=== PATIENT | male | born 1955 | race Caucasian/White ===

== ENCOUNTER 2017-10-18 05:40 | Inpatient (IN) | payer BC, OTHER ==
[2017-10-11 12:08] LABS: HEMATOCRIT 42.4 % (37.9-51.0); HEMOGLOBIN 14.2 g/dL (13.5-17.0); MEAN CORPUSCULAR HEMOGLOBIN 29.8 pg (27.0-33.4); MEAN CORPUSCULAR HGB CONC 33.6 g/dL (32.0-36.0); MEAN CORPUSCULAR VOLUME 89 fl (80-97); PLATELET COUNT 212 10^3/uL (150-450); RED BLOOD COUNT 4.77 10^6/uL (4.35-5.55); RED CELL DISTRIBUTION WIDTH 14.9 % (11.5-14.0); WHITE BLOOD COUNT 8.3 10^3/uL (4.0-10.5)
[2017-10-11 12:22] LABS: APPEARANCE,URINE CLEAR; BILIRUBIN,URINE NEGATIVE (NEGATIVE); COLOR,URINE YELLOW; GLUCOSE, URINE NEGATIVE (NEGATIVE); KETONES,URINE NEGATIVE (NEGATIVE); LEUKOCYTE ESTERASE,URINE NEGATIVE (NEGATIVE); NITRITE,URINE NEGATIVE (NEGATIVE); PROTEIN,URINE NEGATIVE (NEGATIVE); UROBILINOGEN,URINE NEGATIVE mg/dL (<2.0)
[2017-10-11 12:33] LABS: ANION GAP 11 (5-19); BLOOD UREA NITROGEN 20 mg/dL (7-20); CARBON DIOXIDE 31 mmol/L (22-30); CHLORIDE 99 mmol/L (98-107); GLUCOSE 96 mg/dL (75-110); POTASSIUM 5.2 mmol/L (3.6-5.0)
[~2017-10-18 05:40] MED LIST: BUPIVACAINE INJ/PF LIPOSOME/PF 266 MG/20 ML SDV IJ PRN; CEFAZOLIN 2 GM/D5W RTU 2 GM/50 ML RTUPB IV PRN; IBUPROFEN 800 MG/NS 250 ML IV PRN; LACTATED RINGERS 1000 ML IV PRN; LANSOPRAZOLE 15 MG TAB.RAP.DR PO PRN; LIDOCAINE 0.5% INJ-PF (5 MG/ML) 50 ML SDV SUBCUT PRN; OXYCODONE HCL SR 10 MG TABLET PO PRN
--- NOTE | 2017-10-18 06:27 | RADIOLOGY REPORT (SQ) ---
EXAM DESCRIPTION: XR CHEST 1 VIEW COMPLETED DATE/TME: 10/18/2017 00:00 CLINICAL HISTORY: preop. Left knee arthroplasty. COMPARISON: None. FINDINGS: Single frontal view of the chest. Right upper lung calcified granuloma. The cardiomediastinal silhouette has normal size and contour. No consolidation, pneumothorax, or pleural effusion. No displaced rib fractures identified. Upper abdominal soft tissues are unremarkable. IMPRESSION: 1. No acute pulmonary process identified.
[2017-10-18] MEDS ORDERED: THROMBIN (BOVINE) 5000 UNIT EPITAXIS KIT ONE (06:31)
[2017-10-18] MEDS ORDERED: BUPIVACAINE INJ/PF LIPOSOME/PF 266 MG/20 ML SDV ONE (06:31)
[2017-10-18] MEDS ORDERED: THROMBIN (BOVINE) TOPICAL 20000 UNIT VIAL ONE (06:31)
[2017-10-18] MEDS ORDERED: LIDOCAINE 2% INJ-PF (20 MG/ML) 10 ML AMPUL ONE (07:16)
[2017-10-18] MEDS ORDERED: FENTANYL CITRATE INJ/PF 100 MCG/2 ML AMPUL ONE ×2 (07:16)
[2017-10-18] MEDS ORDERED: MIDAZOLAM 2 MG/2 ML INJ ONE (07:16)
[2017-10-18] MEDS ORDERED: PROPOFOL INJ 200 MG/20 ML VIAL IV ONE ×2 (07:17→09:25)
[2017-10-18] MEDS ORDERED: DEXMEDETOMIDINE INJ 80 MCG/20 ML VIAL IV ONE (07:17)
[2017-10-18] MEDS ORDERED: ACETAMINOPHEN 1,000 MG/100 ML RTUPB IV ONE (07:17)
[2017-10-18] MEDS ORDERED: TETRACAINE HCL/PF 20MG/2ML AMPULE (SPINAL) ONE (07:24)
[2017-10-18] MEDS ORDERED: KETAMINE HCL INJ 500 MG/10 ML VIAL ONE (08:12)
[2017-10-18] MEDS ORDERED: EPHEDRINE SULFATE INJ 50 MG/1 ML AMPULE ONE (08:29)
[2017-10-18] MEDS ORDERED: OXYCODONE-ACETAMINOPHEN 5-325 MG TABLET PO PRN ×3 (10:15→10:58)
[2017-10-18] MEDS ORDERED: MEPERIDINE HCL/PF INJ 25 MG/1 ML DISP.SYRIN IV PRN (10:15)
[2017-10-18] MEDS ORDERED: FENTANYL CITRATE INJ/PF 100 MCG/2 ML AMPUL IV PRN ×3 (10:15)
[2017-10-18] MEDS ORDERED: PROMETHAZINE HCL INJ 25 MG/1 ML VIAL IV PRN ×2 (10:15)
[2017-10-18] MEDS ORDERED: DIPHENHYDRAMINE HCL 50 MG/ML VIAL IV PRN (10:15)
[2017-10-18] MEDS ORDERED: MORPHINE SULFATE 10 MG/ML INJ IV PRN (10:15)
[2017-10-18] MEDS ORDERED: ONDANSETRON HCL INJ/PF 4 MG/2 ML SDV IV PRN (10:15)
[2017-10-18] MEDS ORDERED: MAG HYDROX/AL HYDROX/SIMETH SUSP 30 ML UDCUP PO PRN (10:50)
[2017-10-18] MEDS ORDERED: ACETAMINOPHEN 325 MG TABLET PO PRN (10:50)
[2017-10-18] MEDS ORDERED: RINGERS SOLUTION,LACTATED 1,000 ML IV PRN (10:50)
--- NOTE | 2017-10-18 11:07 | Operative Report ---
Operative Report DATE OF SURGERY: 10/18/17 PREOPERATIVE DIAGNOSIS: Left knee osteoarthritis POSTOPERATIVE DIAGNOSIS: Same OPERATION: Left total knee arthroplasty SURGEON: RONY DUDLEY ANESTHESIA: GA TISSUE REMOVED OR ALTERED: None COMPLICATIONS: none ESTIMATED BLOOD LOSS: 50mL INTRAOPERATIVE FINDINGS: As above PROCEDURE: Patient was brought to the operating room where he received spinal anesthetic with conscious sedation. Once the spinal was given patient was placed in supine position and the left lower extremity thigh tourniquet was applied. Left lower extremity was prepped and draped in a normal sterile surgical fashion. Timeout was done identifying the left knee as a correct site. A midline incision was done after the tourniquet was inflated at 350 mmHg. We dissected down to the quadriceps tendon and the actual surgery patient was noted patella and tibial tubercle. A standard medial parapatellar approach an arthrotomy was done. We did our appropriate resection of the patient fat pad and ACL and part of the meniscus. We did a medial release and flexed the knee and everted the patella. We subluxed the tibia anteriorly and felt a small pop medially. Noted that most likely it was a partial avulsion of the medial collateral ligament. ACL and PCL were resected and then we proceeded then to use a PCL retractor. After placing all the retractors and we drilled and placed our intramedullary guide on the tibia. We measured off of the medial side and pinned our guide and then remove the intramedullary guide. We then proceeded to do our tibial cut. This was resected and put in the back table and the guide was removed. We turned our attention to the femur which we proceeded to do measurement and distal femoral cut. Once we measured the femoral to be a size 6 and a balance of a 13 spacer we then proceeded to do our chamfer cuts and box cut. We trialed and noticed that there was some laxity medially likely to avulsion of the MCL off the tibial side. We proceeded then to use a TS insert and instead add some varus and valgus stability. We used and then a size 7 tibial tray and prepared for universal metal tray with a small 50 mm post. We prepared and then proceeded to clean the wound. We placed a trial components and then cut our patella leaving 14 mm of bone. We used a 40 mm offset patella button and was happy with the range of motion. At this point all the trial components were removed and we proceeded to cement accordingly. We cemented the tibial tray first followed by the femoral component and finally the button. We used a trialed spacer and that waited to cement hardened. Excess cement was removed. We trialed again and decided to go with a 16 mm spacer with a TS post. I was happy with the stability and proceeded to use a final polyethylene spacer and secured it locked it in place the PEG inside the post. We proceeded then to close arthrotomy using #1 Vicryl in a interrupted fashion. We approximated subcutaneous fat with 0 Vicryl and then 2-0 Vicryl for the dermis and then usman for skin. Acticoat was applied followed by 4 x 4 dressing and a OpSite dressing. We overwrapped with soft roll and Ezio bandage. Tourniquet was let down at 120 minutes. Drapes were removed and the patient was transferred to PACU in stable condition.
--- NOTE | 2017-10-18 12:39 | RADIOLOGY REPORT (SQ) ---
EXAM DESCRIPTION: KNEE LEFT 2 VIEWS COMPLETED DATE/TIME: 10/18/2017 11:26 am REASON FOR STUDY: Post OP -Long Cassette in PACU M17.12 UNILATERAL PRIMARY OSTEOARTHRITIS, LEFT KNE E COMPARISON: None. NUMBER OF VIEWS: Two views TECHNIQUE: Digital AP and lateral radiographic images of the left knee post-procedure. LIMITATIONS: None. FINDINGS: BONES: No worrisome or unexpected findings post-procedure. DEVICE: Post total knee replacement with patellar resurfacing. Hardware in good alignment. SOFT TISSUES: No worrisome findings. Expected postoperative soft tissue changes. IMPRESSION: SATISFACTORY POSTOPERATIVE LEFT KNEE. TECHNICAL DOCUMENTATION: JOB ID: [id number] [employer]- All Rights Reserved Reading location - IP/workstation name: [email or web address]
[2017-10-18] MEDS ORDERED: TRANEXAMIC ACID INJ/PF 1,000 MG/10 ML SDV IV ONE (15:30)
[2017-10-18] MEDS: OXYCODONE-ACETAMINOPHEN 5-325 MG TABLET PO PRN (15:43)
[2017-10-18] MEDS: SENNOSIDES/DOCUSATE 8.6-50 MG 1 EACH TABLET PO SCH (17:17)
[2017-10-18] MEDS: IBUPROFEN 800 MG in NORMAL SALINE 250 ML IV SCH (17:18)
[2017-10-18] MEDS: OXYCODONE HCL SR 10 MG TABLET PO SCH (21:53)
[2017-10-18] MEDS ORDERED: VANCOMYCIN HCL 1,000 MG in DEXTROSE 5%-WATER 250 ML IV ONE (22:50)
[2017-10-19] MEDS: OXYCODONE-ACETAMINOPHEN 5-325 MG TABLET PO PRN ×3 (00:45→13:58)
[2017-10-19] MEDS: IBUPROFEN 800 MG in NORMAL SALINE 250 ML IV SCH ×2 (01:53→10:37)
[2017-10-19 06:29] LABS: HEMATOCRIT 33.7 % (37.9-51.0); HEMOGLOBIN 11.4 g/dL (13.5-17.0); MEAN CORPUSCULAR HEMOGLOBIN 30.2 pg (27.0-33.4); MEAN CORPUSCULAR HGB CONC 33.8 g/dL (32.0-36.0); MEAN CORPUSCULAR VOLUME 89 fl (80-97); PLATELET COUNT 157 10^3/uL (150-450); RED BLOOD COUNT 3.78 10^6/uL (4.35-5.55); RED CELL DISTRIBUTION WIDTH 14.9 % (11.5-14.0); WHITE BLOOD COUNT 8.1 10^3/uL (4.0-10.5)
[2017-10-19 06:48] LABS: ANION GAP 8 (5-19); BLOOD UREA NITROGEN 22 mg/dL (7-20); CALCIUM 8.8 mg/dL (8.4-10.2); CARBON DIOXIDE 28 mmol/L (22-30); CHLORIDE 99 mmol/L (98-107); GLUCOSE 110 mg/dL (75-110); POTASSIUM 4.8 mmol/L (3.6-5.0); SODIUM 135.2 mmol/L (137-145)
[2017-10-19] MEDS ORDERED: (PENDING PHARMACY ID) (Lisinopril [Lisinopril] 20 MG) PO SCH (10:00)
[2017-10-19] MEDS ORDERED: ASPIRIN 81 MG TABLET, CHEWABLE PO SCH (10:00)
[2017-10-19] MEDS ORDERED: ATORVASTATIN CALCIUM 80 MG TABLET PO SCH (10:00)
[2017-10-19] MEDS ORDERED: HYDROCHLOROTHIAZIDE 25 MG TABLET PO SCH (10:00)
[2017-10-19] MEDS ORDERED: LISINOPRIL 10 MG TABLET PO SCH (10:00)
[2017-10-19] MEDS ORDERED: PRENATAL VITAMIN W DHA CAPSULE PO SCH (10:00)
[2017-10-19] MEDS: SENNOSIDES/DOCUSATE 8.6-50 MG 1 EACH TABLET PO SCH (10:36)
[2017-10-19] MEDS: OXYCODONE HCL SR 10 MG TABLET PO SCH (10:36)
--- NOTE | 2017-10-19 15:43 | PDOC DISCHARGE SUMMARY ---
General - Admit/Disc Date/PCP Admission Date/Primary Care Provider: 10/18/17 05:40 SAHARA REICH DO Discharge Date: 10/19/17 - Discharge Diagnosis (1) S/P total knee arthroplasty Is this a current diagnosis for this admission?: Yes - Additional Information Resuscitation Status: Full Code Home Medications: Aspirin 81 mg PO DAILY 10/08/17 Atorvastatin Calcium 40 mg PO QHS 10/08/17 Hydrochlorothiazide 25 mg PO DAILY 10/08/17 Lisinopril [Prinivil 40 mg Tablet] 20 mg PO DAILY 10/18/17 History of Present Illness History of Present Illness: LUIZ MONTES is a 62 year old male who had failed conservative measures for his left knee arthritis. Patient was scheduled for a left total knee arthroplasty on 10/18/2017. Surgery went uneventful. Patient was admitted for overnight pain control and today on 10/19/2017 has progressed with physical therapy and will be discharged today to home. Hospital Course Hospital Course: Jose is a 62 year old male who had failed conservative measures for his left knee arthritis. Patient was scheduled for a left total knee arthroplasty on 2017. Surgery went uneventful. Patient was admitted for overnight pain control and today on 10/19/2017 has progressed with physical therapy and will be discharged today to home. Physical Exam Vital Signs: Temp Pulse Resp BP Pulse Ox 36.8 C 73 18 147/68 H 96 10/19/17 11:27 10/19/17 11:27 10/19/17 11:27 10/19/17 11:27 10/19/17 11:27 Intake & Output 10/18/17 10/19/17 10/20/17 06:59 06:59 06:59 Intake Total 0 2933 120 Output Total 200 Balance 0 2733 120 Weight 172.37 kg 172.3 kg General appearance: PRESENT: no acute distress Head exam: PRESENT: atraumatic, normocephalic Eye exam: PRESENT: EOMI. ABSENT: nystagmus Ear exam: PRESENT: normal external ear exam Mouth exam: PRESENT: neck supple Cardiovascular exam: PRESENT: RRR Pulses: PRESENT: +2 pedal pulses bilateral Neurological exam: PRESENT: alert, awake, oriented to person, oriented to place , oriented to time, oriented to situation Psychiatric exam: PRESENT: appropriate affect, normal mood Adult Front & Back Image: 1 - Dressing was changed due to bleeding. Incision is clean dry and intact with intact usman. Patient able to do a straight leg raise and has 0 of extension to about 90 of flexion already. Neurovascular intact distally. Results Laboratory Results: 10/19/17 06:06 10/19/17 06:06 10/19/17 10/19/17 06:06 06:06 WBC 8.1 RBC 3.78 L Hgb 11.4 L Hct 33.7 L MCV 89 MCH 30.2 MCHC 33.8 RDW 14.9 H Plt Count 157 Sodium 135.2 L Potassium 4.8 Chloride 99 Carbon Dioxide 28 Anion Gap 8 BUN 22 H Creatinine 0.94 Est GFR ( Amer) > 60 Est GFR (Non-Af Amer) > 60 Glucose 110 Calcium 8.8 Impressions: Chest X-Ray 10/18/17 00:00 IMPRESSION: 1. No acute pulmonary process identified. Knee X-Ray 10/18/17 10:53 IMPRESSION: SATISFACTORY POSTOPERATIVE LEFT KNEE. Status: Image reviewed by me Qualifiers - * PATIENT BEING DISCHARGED WITH ANY OF THE FOLLOWING DIAGNOSIS: No Plan Discharge Plan: Patient will be weight-bear as tolerated. Structured to change dressing in 4 days. OK to shower after those 4 days. Patient will follow-up in 10-14 days. Outpatient physical therapy. Prescribe Xarelto and Percocet for pain control and DVT prophylaxis.
[2017-10-19 15:59] VITALS: BP 123/57
== END 2017-10-19 16:28 | disposition home health service (06) | DRG 470 ==
LOC: INOR 05:40 → 4S 12:00
PROVIDERS: ADMIT Orthopaedic Surgery; ATTEND Orthopaedic Surgery
PROC: 0SRD0J9 Replacement of Left Knee Joint with Synthetic Substitute, Cemented, Open Approach (ICD-10-PCS; principal; 2017-10-18 07:30)
DX: M17.12 Unilateral primary osteoarthritis, left knee (principal); Z96.651 Presence of right artificial knee joint; I10 Essential (primary) hypertension; Z87.891 Personal history of nicotine dependence
CPT/HCPCS: 01402; 36415; 71045; 80048; 81001; 84132; 85027; 88304; 88311; 94799; C9290; J0131; J0690; J1741; J2250; J2704; J3010; J3490; J7050